=== PATIENT | female | born 1945 | race Caucasian/White ===

== ENCOUNTER → 2020-08-15 | Outpatient (CLI) | payer MEDICARE, MEDICAID ==
[2020-08-03 11:53] VITALS: BP 175/78
[~2020-08-15] MED LIST: ACET325T21 PO; ACET325T9 PO; AMLO-187 PO; ATOR40TA59 PO; BISA10SU55 RC; CALC500T31 PO; CARB100C4 PO; CARB200T13 PO; CLON-77 PO; CLONAZEPAM1 MG PO; CYCL10TA2 PO; FLUO40CA2 PO; FLUT16SP NS; GABA600T7 PO; HYDR453.4 TP; IBUP-1007 PO; INSU100I27 SQ; INSU100V6 SQ; LACT1TAB6 PO; LEVO125T5 PO; LEVO750T5 PO; LIDO76.5 TP; LOPE2TAB27 PO; LOSA100T14 PO; MELA1TAB44 PO; MENT118G TP; METF500T16 PO; METO5TAB PO; MIRA25TA PO; MULT-237 PO; NYST15PO9 TP; NYST1POW5 MC; OMEP20TA8 PO; ONDA-84 PO; POLY17PO29 PO; SENN8.6T11 PO; SODI44SP NS; TRAM50TA PO
--- NOTE | 2020-08-15 13:25 | KCIC ---
3 views the cervical spine compared to similar exam dated July 27, 2020 for C2 fracture follow-up status post fall on July 26. FINDINGS: Fracture is not well depicted today, however there is no malalignment between the body of C 2 and the odontoid. Prevertebral soft tissues are grossly unremarkable. Multilevel degenerative shanks es are seen throughout cervical spine. Bulky uncovertebral arthrosis is also evident. IMPRESSION: 1. Stable odontoid fracture with no malalignment. Electronically signed by: Gustavo Polk MD (08/15/2020 1:23 PM) [id number]
--- NOTE | 2020-08-15 16:15 | KCIC ---
CT HEAD/BRAIN WO History: Reason: Subdural hematoma follow up. No LOC on fall. / Spl. Instructions: / History: Comparison: August 02, 2020 Technique: Noncontrast CT imaging was performed of the head. Exposure: One or more of the following individualized dose reduction techniques were utilized for thi s examination: 1. Automated exposure control 2. Adjustment of the mA and/or kV according to patient size 3. Use of iterative reconstruction technique. Findings: Resolved previously seen right parafalcine and tentorial subdural hematoma. No acute intracranial hem orrhage. No mass effect. No hydrocephalus. Moderate foci of decreased attenuation within the hemispheric white matter, most often due to chronic microvascular ischemia, unchanged. Intracranial atheromatous calcifications. Imaged orbits are unremarkable. Imaged paranasal sinuses and mastoid air cells are clear. No acute ca lvarial fracture. Impression: 1. Resolved right parafalcine and tentorial subdural hematoma. Electronically signed by: Jovan Moncada DO (08/15/2020 4:13 PM) [facility]
== END ==
LOC: KCIC 10:39
PROVIDERS: ATTEND Neurological Surgery
DX: S12.110A Anterior displaced Type II dens fracture, initial encounter for closed fracture (principal); S12.100A Unspecified displaced fracture of second cervical vertebra, initial encounter for closed fracture; X58.XXXA Exposure to other specified factors, initial encounter; Y93.89 Activity, other specified; Y92.89 Other specified places as the place of occurrence of the external cause; Y99.8 Other external cause status
CPT/HCPCS: 70450; 72040

== ENCOUNTER 2020-09-05 10:07 | Inpatient (IN) | payer MEDICARE, MEDICAID ==
[~2020-09-05] VITALS: Ht 162.6 cm; Wt 82.9 kg
[~2020-09-05 10:07] MED LIST changes: -ACET325T9 PO; -BISA10SU55 RC; -CARB200T13 PO; -CLONAZEPAM1 MG PO; -FLUT16SP NS; -IBUP-1007 PO; -LEVO750T5 PO; -MENT118G TP; -METO5TAB PO; -NYST15PO9 TP; -NYST1POW5 MC; -POLY17PO29 PO; -SENN8.6T11 PO; -SODI44SP NS; -TRAM50TA PO
[2020-09-05 10:52] LABS: BASO % 0 % (0-3); EOS # 0.1 x10^3/uL (0.0-0.7); EOS % 0 % (0-3); HEMOGLOBIN 11.3 g/dL (12.0-15.5); LYMPH # 0.8 x10^3/uL (1.0-4.8); LYMPH % 6 % (24-48); MEAN CORPUSCULAR HEMOGLOBIN 31 pg (25-35); MEAN CORPUSCULAR HGB CONC 32 g/dL (31-37); MEAN CORPUSCULAR VOLUME 96 fL (79-100); MONO # 0.7 x10^3/uL (0.0-1.1); MONO % 5 % (0-9); NEUT # 11.8 x10^3/uL (1.8-7.7); NEUT % 88 % (31-73); PLATELET COUNT 502 x10^3/uL (140-400); RED BLOOD COUNT 3.63 x10^6/uL (3.50-5.40); RED CELL DISTRIBUTION WIDTH 14.7 % (11.5-14.5); WHITE BLOOD COUNT 13.4 x10^3/uL (4.0-11.0)
[2020-09-05 11:33] LABS: CALCIUM 9.4 mg/dL (8.5-10.1); CREATININE 1.5 mg/dL (0.6-1.0)
[2020-09-05 11:38] LABS: ALBUMIN/GLOBULIN RATIO 0.7 (1.0-1.7); MAGNESIUM 2.2 mg/dL (1.8-2.4); TOTAL BILIRUBIN 0.2 mg/dL (0.2-1.0); TOTAL PROTEIN 7.3 g/dL (6.4-8.2)
--- NOTE | 2020-09-05 11:46 | RAD ---
EXAM: CT HEAD WITHOUT IV CONTRAST CLINICAL HISTORY: Altered mental status COMPARISON: 08/15/2020 TECHNIQUE: Routine CT of the head without contrast. Soft tissues and bone windows were reviewed. PQRS compliance statement - One or more of the following individualized dose reduction techniques wer e utilized for this study: 1. Automated exposure control 2. Adjustment of the mA and/or kV according to patient size 3. Use of iterative reconstruction technique FINDINGS: There is no evidence of hemorrhage, mass or extra-axial fluid collection. Elena-white differentiation is maintained with no evidence of edema. Subcortical, periventricular as w ell as deep white matter foci of hypoattenuation likely changes of chronic small vessel disease. There is no mass effect or shift of the intracranial structures. The ventricles, basilar cisterns and cortical sulci are normal in size and configuration for the lloyd ents stated age. The cerebellum and brainstem are unremarkable. The calvarium demonstrates no evidence of fracture or focal lesion. There is normal aeration of the visualized paranasal sinuses and mastoid air cells. The visualized portions of the orbits are normal. IMPRESSION: No evidence for acute intracranial process. White matter changes likely chronic small vessel disease. EXAM: CT CERVICAL SPINE WITHOUT IV CONTRAST CLINICAL HISTORY: Reason: fall AMs / Spl. Instructions: / History: COMPARISON: 07/26/2020. TECHNIQUE: Helical CT of the cervical spine was performed. Axial, coronal and sagittal reformatted im ages were also performed. PQRS compliance statement - One or more of the following individualized dose reduction techniques wer e utilized for this study: 1. Automated exposure control 2. Adjustment of the mA and/or kV according to patient size 3. Use of iterative reconstruction technique FINDINGS: There is a transverse fracture through the base of the dens with less than 2 mm distraction of the pr incipal fragments, without involvement of the lateral masses. When compared to prior CT 07/26/2080 fr acture components are mildly further distracted suggesting interval motion. The arch of C1 is preserv ed. Vertebral body heights are preserved. Mild C4-5, C5-6 and moderate C6-7 disc height loss with end plate osteophytes. Facet degenerative changes are seen bilaterally. No spondylolisthesis. Right upper lung groundglass opacities possibly atelectasis or developing consolidation. IMPRESSION: 1. Base of the dens fracture is again seen, however separation of the principal fragments is margina lly increased compared to 07/26/2020 although remains less than 2 mm. 2. Right upper lung parenchymal opacities likely consolidative process as pneumonia. Findings discussed with Adriana Farmer at 09/05/2020 11:43 AM. FOR INTERNAL CODING PURPOSES RESULT CODE: (C) Electronically signed by: Jose Sanders MD (09/05/2020 11:44 AM) [id number]
[2020-09-05 11:56] LABS: % BANDS 12 % (0-9); % LYMPHS 15 % (24-48); % MONOS 4 % (0-10); % SEGS 69 % (35-66); PLT ESTIMATE INCREASED (ADEQUATE)
--- NOTE | 2020-09-05 12:44 | PHYS DOC ---
Past Medical History Past Medical History: Anxiety, Dementia, Depression, Diabetes-Type II, High Cholesterol, Hypertension, Hypothyroid, Other Additional Past Medical Histor: Post polio syndome,CERVICAL FX,SUBDURAL HEMORRHAGE Past Surgical History: Appendectomy, Cholecystectomy, Hysterectomy, Knee Replacement Smoking Status: Never Smoker Alcohol Use: None General Adult EDM: Chief Complaint: ALTERED MENTAL STATUS HPI: HPI: Patient is a 75 year old female with a history of diabetes type 2, hype rtension, dementia, high cholesterol, anxiety, who presents today from [facility]. shelter staff report patient fell down 2 days ago and has been altered for the last 2 days. They states she normally has dementia but she is more altered than normal. Patient herself states she fell down 4 days ago and has a broken neck. She is in a c-collar. Review of Systems: Review of Systems: Constitutional: Denies fever or chills. [] Eyes: Denies change in visual acuity. [] HENT: Denies nasal congestion or sore throat. [] Respiratory: Denies cough or shortness of breath. [] Cardiovascular: Denies chest pain or edema. [] GI: Denies abdominal pain, nausea, vomiting, bloody stools or diarrhea. [] : Denies dysuria. [] Musculoskeletal: Reports fall. Denies back pain or joint pain. [] Integument: Denies rash. [] Neurologic: Reports AMS. Denies headache, focal weakness or sensory changes. [] Psychiatric: Denies depression or anxiety. [] Heart Score: Risk Factors: Risk Factors: DM, Current or recent (<one month) smoker, HTN, HLP, family history of CAD, obesity. Risk Scores: Score 0 - 3: 2.5% MACE over next 6 weeks - Discharge Home Score 4 - 6: 20.3% MACE over next 6 weeks - Admit for Clinical Observation Score 7 - 10: 72.7% MACE over next 6 weeks - Early Invasive Strategies Allergies: Allergies: Allergies Coded Allergies Type Severity Reaction Last Updated Verified No Known Drug Allergies 07/26/20 No Physical Exam: PE: Constitutional: Well developed, well nourished, no acute distress, non-toxic appearance. [] HENT: Normocephalic, atraumatic, bilateral external ears normal, oropharynx moist, no oral exudates, nose normal. [] Eyes: PERRLA, EOMI, conjunctiva normal, no discharge. [] Neck: Patient is in a c-collar, mild midline tenderness to the proximal cervical spine, supple, no stridor. Limited range of motion to the cervical spine due to pain. Cardiovascular:Heart rate regular rhythm, no murmur [] Lungs & Thorax: Bilateral breath sounds clear to auscultation [] Abdomen: Bowel sounds normal, soft, no tenderness, no masses, no pulsatile masses. [] Skin: Warm, dry, no erythema, no rash. [] Back: No tenderness, no CVA tenderness. [] Extremities: No tenderness, no cyanosis, no clubbing, ROM intact, no edema. [] Neurologic: Alert and oriented X 3, normal motor function, normal sensory f unction, no focal deficits noted. [] Psychologic: Flat affect Current Patient Data: Labs: Laboratory Tests Test 09/05/20 10:23 White Blood Count 13.4 x10^3/uL (4.0-11.0) H Red Blood Count 3.63 x10^6/uL (3.50-5.40) Hemoglobin 11.3 g/dL (12.0-15.5) L Hematocrit 35.0 % (36.0-47.0) L Mean Corpuscular Volume 96 fL (79-100) Mean Corpuscular Hemoglobin 31 pg (25-35) Mean Corpuscular Hemoglobin Concent 32 g/dL (31-37) Red Cell Distribution Width 14.7 % (11.5-14.5) H Platelet Count 502 x10^3/uL (140-400) H Neutrophils (%) (Auto) 88 % (31-73) H Lymphocytes (%) (Auto) 6 % (24-48) L Monocytes (%) (Auto) 5 % (0-9) Eosinophils (%) (Auto) 0 % (0-3) Basophils (%) (Auto) 0 % (0-3) Neutrophils # (Auto) 11.8 x10^3/uL (1.8-7.7) H Lymphocytes # (Auto) 0.8 x10^3/uL (1.0-4.8) L Monocytes # (Auto) 0.7 x10^3/uL (0.0-1.1) Eosinophils # (Auto) 0.1 x10^3/uL (0.0-0.7) Basophils # (Auto) 0.0 x10^3/uL (0.0-0.2) Segmented Neutrophils % 69 % (35-66) H Band Neutrophils % 12 % (0-9) H Lymphocytes % 15 % (24-48) L Monocytes % 4 % (0-10) Platelet Estimate Increased (ADEQUATE) Sodium Level 138 mmol/L (136-145) Potassium Level 4.0 mmol/L (3.5-5.1) Chloride Level 100 mmol/L (98-107) Carbon Dioxide Level 26 mmol/L (21-32) Anion Gap 12 (6-14) Blood Urea Nitrogen 37 mg/dL (7-20) H Creatinine 1.5 mg/dL (0.6-1.0) H Estimated GFR (Cockcroft-Gault) 34.0 BUN/Creatinine Ratio 25 (6-20) H Glucose Level 167 mg/dL (70-99) H Calcium Level 9.4 mg/dL (8.5-10.1) Magnesium Level 2.2 mg/dL (1.8-2.4) Total Bilirubin 0.2 mg/dL (0.2-1.0) Aspartate Amino Transferase (AST) 17 U/L (15-37) Alanine Aminotransferase (ALT) 25 U/L (14-59) Alkaline Phosphatase 142 U/L (46-116) H Troponin I Quantitative < 0.017 ng/mL (0.000-0.055) BR-Prj-T-Type Natriuretic Peptide 117 pg/mL (0-124) Total Protein 7.3 g/dL (6.4-8.2) Albumin 3.0 g/dL (3.4-5.0) L Albumin/Globulin Ratio 0.7 (1.0-1.7) L Lipase 82 U/L (73-393) Laboratory Tests 09/05/20 10:23 Laboratory Tests 09/05/20 10:23 Vital Signs: Vital Signs Date Time Temp Pulse Resp B/P (MAP) Pulse Ox O2 Delivery O2 Flow Rate FiO2 09/05/20 10:07 98.6 95 20 122/66 (84) 91 Room Air 98.6 EKG: EK interpreted by Dr. Leone sinus rhythm HR 91 no STEMI[] Radiology/Procedures: Radiology/Procedures: []PROCEDURE: CT HEAD AND CERVICAL SPINE WO EXAM: CT HEAD WITHOUT IV CONTRAST CLINICAL HISTORY: Altered mental status COMPARISON: 08/15/2020 TECHNIQUE: Routine CT of the head without contrast. Soft tissues and bone windows were revi ewed. PQRS compliance statement - One or more of the following individualized dose reduction techniques were utilized for this study: 1. Automated exposure control 2. Adjustment of the mA and/or kV according to patient size 3. Use of iterative reconstruction technique FINDINGS: There is no evidence of hemorrhage, mass or extra-axial fluid collection. Elena-white differentiation is maintained with no evidence of edema. Subcortical, periventricular as well as deep white matter foci of hypoattenuation likely changes of chronic small vessel disease. There is no mass effect or shift of the intracranial structures. The ventricles, basilar cisterns and cortical sulci are normal in size and configuration for the patients stated age. The cerebellum and brainstem are unremarkable. The calvarium demonstrates no evidence of fracture or focal lesion. There is normal aeration of the visualized paranasal sinuses and mastoid air cells. The visualized portions of the orbits are normal. IMPRESSION: No evidence for acute intracranial process. White matter changes likely chronic small vessel disease. EXAM: CT CERVICAL SPINE WITHOUT IV CONTRAST CLINICAL HISTORY: Reason: fall AMs / Spl. Instructions: / History: COMPARISON: 07/26/2020. TECHNIQUE: Helical CT of the cervical spine was performed. Axial, coronal and sagittal reformatted images were also performed. PQRS compliance statement - One or more of the following individualized dose red uction techniques were utilized for this study: 1. Automated exposure control 2. Adjustment of the mA and/or kV according to patient size 3. Use of iterative reconstruction technique FINDINGS: There is a transverse fracture through the base of the dens with less than 2 mm distraction of the principal fragments, without involvement of the lateral masses. When compared to prior CT 07/26/2080 fracture components are mildly further distracted suggesting interval motion. The arch of C1 is preserved. Vertebral body heights are preserved. Mild C4-5, C5-6 and moderate C6-7 disc height loss with endplate osteophytes. Facet degenerative changes are seen bilaterally. No spondylolisthesis. Right upper lung groundglass opacities possibly atelectasis or developing consolidation. IMPRESSION: 1. Base of the dens fracture is again seen, however separation of the principal fragments is marginally increased compared to 07/26/2020 although remains less than 2 mm. 2. Right upper lung parenchymal opacities likely consolidative process as pneumonia. Findings discussed with Carl Jane at 09/05/2020 11:43 AM. FOR INTERNAL CODING PURPOSES RESULT CODE: (C) Electronically signed by: Jose Diaz MD (09/05/2020 11:44 AM) [id number] DICTATED and SIGNED BY: JOSE DIAZ MD DATE: 09/05/20 [id number] 0 Course & Med Decision Making: Course & Med Decision Making Pertinent Labs and Imaging studies reviewed. (See chart for details) This is a 75-year-old female patient presented to the ED today to be evaluated after falling 2 days ago and developing altered mental status post fall 2 days ago. Patient is currently alert oriented x3 though she removed her IV in the ED for no good reason. CT of the head is negative, CT of the cervical spine was noted for base of the dens fracture is again seen, however separation of the principal fragments is marginally increased compared to 07/26/2020 although remains less than 2 mm. Right upper lung parenchymal opacities likely consolidative process as pneumonia. CBC with a WBC of 13.4, CMP with creatinine of 1.5, BUN of 37. Spoke with Magui from neurosurgery, she states they are aware of patient's dense fracture from July 26 as well as today. We will follow up with patient as an outpatient Spoke with Dr. Callahan who accepted patient for admission Charles Disclaimer: Charles Disclaimer: This electronic medical record was generated, in whole or in part, using a voice recognition dictation system. Departure Departure Impression: Primary Impression: Altered mental status Qualified Codes: R41.82 - Altered mental status, unspecified Additional Impressions: Fall Qualified Codes: W19.XXXA - Unspecified fall, initial encounter Closed dens fracture Qualified Codes: S12.100A - Unspecified displaced fracture of second cervical vertebra, initial encounter for closed fracture Disposition: 09 ADMITTED INPT THIS HOSP Condition: STABLE Referrals: BRIAN PA (PCP) CARL JANE [employer] Sep 05, 2020 12:44
--- NOTE | 2020-09-05 12:51 | NUR ---
At 1247, DAMASO Kidd and I took her off a bedpan and wiped her behind clean. New Brief was also put on.
[2020-09-05] MEDS ORDERED: ACETAMINOPHEN 325 MG TABLET. PO PRN ×2 (13:30→13:45)
[2020-09-05] MEDS ORDERED: MORPHINE SULFATE 2 MG/ML VIAL. IV PRN ×2 (13:30→13:45)
[2020-09-05] MEDS ORDERED: ONDANSETRON PF 4 MG/2 ML VIAL. IV PRN (13:30)
[2020-09-05] MEDS ORDERED: IV NORMAL SALINE 1000ML BAG 1,000 ML IV ONE (13:30)
--- NOTE | 2020-09-05 13:41 | PDOC1 ---
History and Physical Date of Admission Date of Admission DATE: 09/05/20 TIME: 13:26 Identification/Chief Complaint Chief Complaint Fall Source Source: Chart review, Patient History of Present Illness History of Present Illness Patient is a 75-year-old female with recent past medical history subdural hematoma, who presents from her [facility] for evaluation of a fall 2 days ago. She was evaluated at her [facility] 2 days ago and placed in a c-collar, but was sent to the ER for evaluation after her altered mental status appeared to not be improving. She reportedly has a history of dementia and is normally altered at baseline. CT head obtained upon admission showing no evidence for acute intracranial process, but does again note base of the dens fracture status marginally increased compared to 07/2020, but remains <2 mm. She does report some dysuria over the past 3 days. Upon evaluation ER, she does appear dehydrated with acute kidney injury. Will admit patient for further medical management. Past Medical History Cardiovascular: HTN CENTRAL NERVOUS SYSTEM: Dementia, Other Endocrine: Diabetes, Hypothyroidism Past Surgical History Past Surgical History: Appendectomy, Cholecystectomy, Total knee replacement, Hysterectomy Family History Family History: Alzheimer's Disease Social History Smoke: No ALCOHOL: none Drugs: None Current Problem List Problem List Problems Medical Problems: (1) Altered mental status Status: Acute (2) Closed dens fracture Status: Acute (3) Fall Status: Acute Current Medications Current Medications Active Scripts Active Cyclobenzaprine Hcl 10 Mg Tablet 5 Mg PO PRN Q8HRS PRN 30 Days Reported Aspercreme (Lidocaine HCl) 76.5 Gm Cream..g. 1 Philip TP TID 30 Days Ondansetron Hcl 4 Mg Tablet 1 Tab PO PRN Q8HRS PRN Loperamide (Loperamide Hcl) 2 Mg Tablet 2 Mg PO PRN PRN After each loose stool not to exceed 8c/d Acetaminophen 325 Mg Tablet 2 Tab PO PRN Q4HRS PRN 30 Days Levemir Flextouch (Insulin Detemir) 100 Unit/1 Ml Insuln.pen 32 Unit SQ HS Humalog (Insulin Lispro) 100 Unit/1 Ml Vial 14 Unit SQ TIDWMEALS Omeprazole 20 Mg Tablet.dr 1 Tab PO DAILY Myrbetriq (Mirabegron) 25 Mg Tab.er.24h 25 Mg PO DAILY Metformin Hcl 500 Mg Tablet 500 Mg PO DAILY Melatonin 1 Mg Tablet 1 Tab PO QHS 30 Days Losartan Potassium 100 Mg Tablet 100 Mg PO DAILY Levothyroxine Sodium 125 Mcg Tablet 1 Tab PO DAILY Gabapentin 600 Mg Tablet 600 Mg PO TID Fluoxetine Hcl 40 Mg Capsule 40 Mg PO DAILY Daily Vitamin Formula-Minerals (Multivitamin With Minerals) 1 Each Tablet 1 Tab PO DAILY 30 Days Clonazepam (Clonazepam) 0.5 Mg Tablet 0.5 Mg PO HS Carbamazepine 100 Mg Cpmp.12hr 2 Cap PO BID 30 Days Calcium Carbonate 500 Mg Tablet 1 Tab PO BID PRN 30 Days Atorvastatin Calcium 40 Mg Tablet 1 Tab PO DAILY Amlodipine Besylate 10 Mg Tablet 10 Mg PO DAILY Acidophilus (Lactobacillus Acidophilus) 1 Each Tablet 1 Tab PO TID 30 Days Allergies Allergies: Coded Allergies: No Known Drug Allergies (Unverified , 07/26/20) ROS Review of System GENERAL: No history of weight change, weakness or fevers. SKIN: No bruising, hair changes or rashes. EYES: No blurred, double or loss of vision. NOSE AND THROAT: No history of nosebleeds, hoarseness or sore throat. HEART: Denies chest pain, denies palpitations. LUNGS: Denies cough, hemoptysis, wheezing or shortness of breath. GASTROINTESTINAL: Denies nausea, vomiting, abdominal pain. GENITOURINARY: Dysuria. Denies frequency, urgency, hematuria. NEUROLOGIC: Denies history of numbness, tingling, tremor or weakness. PSYCHIATRIC: Denies anxiety, denies depression. ENDOCRINE: No history of heat or cold intolerance, polyuria or polydipsia. EXTREMITIES: Denies muscle weakness, joint pain, pain on walking or stiffness. Physical Exam Physical Exam General: Alert, Cooperative, No acute distress. C-collar in place. HEENT: PERRLA, EOMI Lungs: Decreased breath sounds, Normal air movement Heart: RRR, no murmurs Cardiovascular: S1, S2 Abdomen: Normal bowel sounds, Soft, No tenderness Extremities: No clubbing, No cyanosis Skin: No rashes, No significant lesion Neuro: Normal speech, Normal tone, Sensation intact Psych/Mental Status: Mental status NL, Mood NL Vitals Vitals Vital Signs Date Time Temp Pulse Resp B/P (MAP) Pulse Ox O2 Delivery O2 Flow Rate FiO2 09/05/20 10:07 98.6 95 20 122/66 (84) 91 Room Air 98.6 Labs Labs Laboratory Tests Test 09/05/20 10:23 White Blood Count 13.4 x10^3/uL (4.0-11.0) Red Blood Count 3.63 x10^6/uL (3.50-5.40) Hemoglobin 11.3 g/dL (12.0-15.5) Hematocrit 35.0 % (36.0-47.0) Mean Corpuscular Volume 96 fL (79-100) Mean Corpuscular Hemoglobin 31 pg (25-35) Mean Corpuscular Hemoglobin Concent 32 g/dL (31-37) Red Cell Distribution Width 14.7 % (11.5-14.5) Platelet Count 502 x10^3/uL (140-400) Neutrophils (%) (Auto) 88 % (31-73) Lymphocytes (%) (Auto) 6 % (24-48) Monocytes (%) (Auto) 5 % (0-9) Eosinophils (%) (Auto) 0 % (0-3) Basophils (%) (Auto) 0 % (0-3) Neutrophils # (Auto) 11.8 x10^3/uL (1.8-7.7) Lymphocytes # (Auto) 0.8 x10^3/uL (1.0-4.8) Monocytes # (Auto) 0.7 x10^3/uL (0.0-1.1) Eosinophils # (Auto) 0.1 x10^3/uL (0.0-0.7) Basophils # (Auto) 0.0 x10^3/uL (0.0-0.2) Segmented Neutrophils % 69 % (35-66) Band Neutrophils % 12 % (0-9) Lymphocytes % 15 % (24-48) Monocytes % 4 % (0-10) Platelet Estimate Increased (ADEQUATE) Sodium Level 138 mmol/L (136-145) Potassium Level 4.0 mmol/L (3.5-5.1) Chloride Level 100 mmol/L (98-107) Carbon Dioxide Level 26 mmol/L (21-32) Anion Gap 12 (6-14) Blood Urea Nitrogen 37 mg/dL (7-20) Creatinine 1.5 mg/dL (0.6-1.0) Estimated GFR (Cockcroft-Gault) 34.0 BUN/Creatinine Ratio 25 (6-20) Glucose Level 167 mg/dL (70-99) Calcium Level 9.4 mg/dL (8.5-10.1) Magnesium Level 2.2 mg/dL (1.8-2.4) Total Bilirubin 0.2 mg/dL (0.2-1.0) Aspartate Amino Transf (AST/SGOT) 17 U/L (15-37) Alanine Aminotransferase (ALT/SGPT) 25 U/L (14-59) Alkaline Phosphatase 142 U/L (46-116) Troponin I Quantitative < 0.017 ng/mL (0.000-0.055) ZE-Sdv-Q-Type Natriuretic Peptide 117 pg/mL (0-124) Total Protein 7.3 g/dL (6.4-8.2) Albumin 3.0 g/dL (3.4-5.0) Albumin/Globulin Ratio 0.7 (1.0-1.7) Lipase 82 U/L (73-393) Laboratory Tests Test 09/05/20 10:23 White Blood Count 13.4 x10^3/uL (4.0-11.0) Red Blood Count 3.63 x10^6/uL (3.50-5.40) Hemoglobin 11.3 g/dL (12.0-15.5) Hematocrit 35.0 % (36.0-47.0) Mean Corpuscular Volume 96 fL (79-100) Mean Corpuscular Hemoglobin 31 pg (25-35) Mean Corpuscular Hemoglobin Concent 32 g/dL (31-37) Red Cell Distribution Width 14.7 % (11.5-14.5) Platelet Count 502 x10^3/uL (140-400) Neutrophils (%) (Auto) 88 % (31-73) Lymphocytes (%) (Auto) 6 % (24-48) Monocytes (%) (Auto) 5 % (0-9) Eosinophils (%) (Auto) 0 % (0-3) Basophils (%) (Auto) 0 % (0-3) Neutrophils # (Auto) 11.8 x10^3/uL (1.8-7.7) Lymphocytes # (Auto) 0.8 x10^3/uL (1.0-4.8) Monocytes # (Auto) 0.7 x10^3/uL (0.0-1.1) Eosinophils # (Auto) 0.1 x10^3/uL (0.0-0.7) Basophils # (Auto) 0.0 x10^3/uL (0.0-0.2) Segmented Neutrophils % 69 % (35-66) Band Neutrophils % 12 % (0-9) Lymphocytes % 15 % (24-48) Monocytes % 4 % (0-10) Platelet Estimate Increased (ADEQUATE) Sodium Level 138 mmol/L (136-145) Potassium Level 4.0 mmol/L (3.5-5.1) Chloride Level 100 mmol/L (98-107) Carbon Dioxide Level 26 mmol/L (21-32) Anion Gap 12 (6-14) Blood Urea Nitrogen 37 mg/dL (7-20) Creatinine 1.5 mg/dL (0.6-1.0) Estimated GFR (Cockcroft-Gault) 34.0 BUN/Creatinine Ratio 25 (6-20) Glucose Level 167 mg/dL (70-99) Calcium Level 9.4 mg/dL (8.5-10.1) Magnesium Level 2.2 mg/dL (1.8-2.4) Total Bilirubin 0.2 mg/dL (0.2-1.0) Aspartate Amino Transf (AST/SGOT) 17 U/L (15-37) Alanine Aminotransferase (ALT/SGPT) 25 U/L (14-59) Alkaline Phosphatase 142 U/L (46-116) Troponin I Quantitative < 0.017 ng/mL (0.000-0.055) WD-Tih-X-Type Natriuretic Peptide 117 pg/mL (0-124) Total Protein 7.3 g/dL (6.4-8.2) Albumin 3.0 g/dL (3.4-5.0) Albumin/Globulin Ratio 0.7 (1.0-1.7) Lipase 82 U/L (73-393) Images Images EXAM: CT HEAD WITHOUT IV CONTRAST CLINICAL HISTORY: Altered mental status COMPARISON: 08/15/2020 TECHNIQUE: Routine CT of the head without contrast. Soft tissues and bone windows were reviewed. PQRS compliance statement - One or more of the following individualized dose reduction techniques were utilized for this study: 1. Automated exposure control 2. Adjustment of the mA and/or kV according to patient size 3. Use of iterative reconstruction technique FINDINGS: There is no evidence of hemorrhage, mass or extra-axial fluid collection. Elena-white differentiation is maintained with no evidence of edema. Subcortical, periventricular as well as deep white matter foci of hypoattenuation likely changes of chronic small vessel disease. There is no mass effect or shift of the intracranial structures. The ventricles, basilar cisterns and cortical sulci are normal in size and configuration for the patients stated age. The cerebellum and brainstem are unremarkable. The calvarium demonstrates no evidence of fracture or focal lesion. There is normal aeration of the visualized paranasal sinuses and mastoid air cells. The visualized portions of the orbits are normal. IMPRESSION: No evidence for acute intracranial process. White matter changes likely chronic small vessel disease. EXAM: CT CERVICAL SPINE WITHOUT IV CONTRAST CLINICAL HISTORY: Reason: fall AMs / Spl. Instructions: / History: COMPARISON: 07/26/2020. TECHNIQUE: Helical CT of the cervical spine was performed. Axial, coronal and sagittal reformatted images were also performed. PQRS compliance statement - One or more of the following individualized dose reduction techniques were utilized for this study: 1. Automated exposure control 2. Adjustment of the mA and/or kV according to patient size 3. Use of iterative reconstruction technique FINDINGS: There is a transverse fracture through the base of the dens with less than 2 mm distraction of the principal fragments, without involvement of the lateral masses. When compared to prior CT 07/26/2080 fracture components are mildly further distracted suggesting interval motion. The arch of C1 is preserved. Vertebral body heights are preserved. Mild C4-5, C5-6 and moderate C6-7 disc height loss with endplate osteophytes. Facet degenerative changes are seen bilaterally. No spondylolisthesis. Right upper lung groundglass opacities possibly atelectasis or developing consolidation. IMPRESSION: 1. Base of the dens fracture is again seen, however separation of the principal fragments is marginally increased compared to 07/26/2020 although remains less than 2 mm. 2. Right upper lung parenchymal opacities likely consolidative process as pneumonia. VTE Prophylaxis Ordered VTE Prophylaxis Devices: Yes VTE Pharmacological Prophylaxi: No Assessment/Plan Assessment/Plan Fall HCAP SHAHAB Vasomotor nephropathy Malnutrition Plan: Etiology of fall likely orthostatic or vasovagal CT head from previous admission in 07/2020 showed small amount of subdural hemorrhage along the superior and inferior falx and type II odontoid fracture with possible linear extension to the C2 body. Repeat CT head obtained on admis ирина with base of the dens fracture is again seen, however marginally increased separation of the principal fragments compared to 07/26/2020 although remains less than 2 mm. Right upper lung parenchymal opacities captured on CT likely consolidative process as pneumonia Chest x-ray pending, UA pending Cefepime 2 g every 8 hours, IV fluids Chest x-ray, urinalysis pending. FEN - Cardiac diet PPX - SCDs DNR Dispo - inpatient for above Justifications for Admission Other Justification JUAN ANTONIO CASSIDY MD Sep 05, 2020 13:41
[2020-09-05] MEDS ORDERED: BISACODYL 10 MG SUPP.RECT. PR PRN (13:45)
[2020-09-05] MEDS ORDERED: MAG HYDROX/ALUMINUM HYD/SIMETH 30 ML ORAL.SUSP PO PRN (13:45)
[2020-09-05] MEDS ORDERED: ONDANSETRON PF 4 MG/2 ML VIAL. IVP PRN (13:45)
[2020-09-05] MEDS ORDERED: MAGNESIUM HYDROXIDE 2,400 MG/30 ML ORAL.SUSP. PO PRN (13:45)
[2020-09-05] MEDS ORDERED: CEFEPIME HCL IV Push 2 GM VIAL. IVP ONE (14:00)
[2020-09-05 14:38] LABS: BARBITURATES NEG (NEG); BENZODIAZEPINES NEG (NEG); CANNABINOIDS NEG (NEG); COCAINE NEG (NEG); METHADONE NEG (NEG); OPIATES NEG (NEG); PHENCYCLIDINE NEG (NEG)
[2020-09-05 14:55] LABS: AMPHETAMINE/METHAMPHETAMINE NEG (NEG)
[2020-09-05 14:57] LABS: BILIRUBIN,URINE SMALL (NEG); CLARITY,URINE CLEAR; COLOR,URINE YELLOW; NITRITE,URINE NEGATIVE (NEG); PROTEIN,URINE NEGATIVE (NEG-TRACE); UROBILINOGEN,URINE 0.2 mg/dL (0.2 mg/dL)
--- NOTE | 2020-09-05 14:57 | EKG ---
[facility] [address] [place] [address] Test Date: 2020-09-05 Test Time: 10:20:07 Pat Name: DEEP MOSES Department: Room: Gender: F Auto Appraiser: : 1945 Requested By: CARL JANE Order Number: [id number] Reading MD: Measurements Intervals [place] Rate: 91 P: 46 CA: 206 QRS: -39 QRSD: 90 T: 38 QT: 350 QTc: 432 Interpretive Statements SINUS RHYTHM ABNORMAL LEFT AXIS DEVIATION R-S TRANSITION ZONE IN V LEADS DISPLACED TO THE LEFT LEFT ANTERIOR FASCICULAR BLOCK ABNORMAL ECG RI6.02 No previous ECG available for comparison
[2020-09-05 15:04] LABS: BACTERIA,URINE FEW /HPF (0-FEW)
[2020-09-05 18:30] VITALS: BP 146/69
[2020-09-05 19:00] VITALS: BP 155/68
[2020-09-05] MEDS ORDERED: IBUPROFEN 200 MG TABLET. PO PRN (20:00)
--- NOTE | 2020-09-05 20:00 | NUR ---
Patient arrived on 4N per cart from ER at 1800. Patient admitted at 1999. Patient is alert and oriented x4. Admitting diagnosis: AMS, Dens fracture from fall on 08/26/20. Pait
--- NOTE | 2020-09-05 20:01 | NUR ---
Patient has NKA. Patient has a cervical collar on. [facility] states that patient's mental status has been more altered than normal since her fall on 08/26/20. Patient stated that she has been on bedrest since fall. Patient stated prior to fall, she was walking with walker. Patient has O2 on at 3L/min per nasal cannula. Patient is in no acute distress at this time. Patient denies pain. Patient is incontinent of bowel and bladder. Will continue to monitor.
[2020-09-05] MEDS ORDERED: INSU100V6 SQ (20:13)
[2020-09-05] MEDS ORDERED: IBUP-1007 PO (20:21)
[2020-09-05] MEDS ORDERED: NYST1POW5 MC (20:21)
[2020-09-05] MEDS ORDERED: POLY17PO29 PO (20:21)
[2020-09-05] MEDS: CEFEPIME HCL IV Push 2 GM VIAL. IVP SCH (21:23)
[2020-09-05 23:15] VITALS: BP 108/54
[2020-09-06 03:00] VITALS: BP 120/59
--- NOTE | 2020-09-06 06:40 | PDOC ---
[employer] PROGRESS NOTE Date of Service DOS: DATE: 09/06/20 TIME: 06:34 Chief Complaint Chief Complaint Fall HCAP SHAHAB Present nephropathy Malnutrition Plan: Etiology of fall likely orthostatic or vasovagal CT head from previous admission in 07/2020 showed small amount of subdural hemorrhage along the superior and inferior falx and type II odontoid fracture with possible linear extension to the C2 body. Repeat CT head obtained on admission with base of the dens fracture is again seen, however marginally increased separation of the principal fragments compared to 07/26/2020 although remains less than 2 mm. Right upper lung parenchymal opacities captured on CT likely consolidative process as pneumonia Chest x-ray pending, UA pending Cefepime 2 g every 8 hours, IV fluids Chest x-ray, urinalysis pending. FEN - Cardiac diet PPX - SCDs DNR Dispo - inpatient for above History of Present Illness History of Present Illness Patient is a 75-year-old female with recent past medical history subdural hematoma, who [facility] her [facility] for evaluation of a fall 2 days ago. She was evaluated at her [facility] 2 days ago and placed in a c-collar, but was sent to the ER for evaluation after her altered mental status appeared to not be improving. She reportedly has a history of dementia and is normally altered at baseline. CT head obtained upon admission showing no evidence for acute intracranial process, but does again note base of the dens fracture status marginally increased compared to 07/2020, but remains <2 mm. She does report some dysuria over the past 3 days. Upon evaluation ER, she does appear dehydrated with acute kidney injury. Will admit patient for further medical management. 09/06: Patient seen and evaluated. She has history of IBS and reports some nausea, diarrhea, and abdominal pain last night. She states the symptoms are not new or unusual for her. She is afebrile. Intermittently using nasal cannula mostly at night, even though she denies sensation of shortness of breath. Appreciate neurosurgery recommendations. She may discharge back to her nursing facility today on oral antibiotics. Greater than 30 minutes spent managing discharge this patient. Vitals/I&O Vitals/I&O: Vital Signs Date Time Temp Pulse Resp B/P (MAP) Pulse Ox O2 Delivery O2 Flow Rate FiO2 09/06/20 03:00 98.3 78 18 120/59 (79) 97 Nasal Cannula 2.0 98.3 I & O 09/05/20 09/05/20 09/06/20 15:00 23:00 07:00 Intake Total 500 ml 700 ml Balance 500 ml 700 ml Physical Exam General: Alert, Cooperative, No acute distress Heart: Regular rate Lungs: Clear Abdomen: Soft, No tenderness Extremities: No clubbing, No cyanosis Skin: No rashes, No breakdown Labs Labs: Laboratory Tests Test 09/05/20 10:23 09/05/20 13:46 09/05/20 14:02 White Blood Count 13.4 x10^3/uL (4.0-11.0) Red Blood Count 3.63 x10^6/uL (3.50-5.40) Hemoglobin 11.3 g/dL (12.0-15.5) Hematocrit 35.0 % (36.0-47.0) Mean Corpuscular Volume 96 fL (79-100) Mean Corpuscular Hemoglobin 31 pg (25-35) Mean Corpuscular Hemoglobin Concent 32 g/dL (31-37) Red Cell Distribution Width 14.7 % (11.5-14.5) Platelet Count 502 x10^3/uL (140-400) Neutrophils (%) (Auto) 88 % (31-73) Lymphocytes (%) (Auto) 6 % (24-48) Monocytes (%) (Auto) 5 % (0-9) Eosinophils (%) (Auto) 0 % (0-3) Basophils (%) (Auto) 0 % (0-3) Neutrophils # (Auto) 11.8 x10^3/uL (1.8-7.7) Lymphocytes # (Auto) 0.8 x10^3/uL (1.0-4.8) Monocytes # (Auto) 0.7 x10^3/uL (0.0-1.1) Eosinophils # (Auto) 0.1 x10^3/uL (0.0-0.7) Basophils # (Auto) 0.0 x10^3/uL (0.0-0.2) Segmented Neutrophils % 69 % (35-66) Band Neutrophils % 12 % (0-9) Lymphocytes % 15 % (24-48) Monocytes % 4 % (0-10) Platelet Estimate Increased (ADEQUATE) Sodium Level 138 mmol/L (136-145) Potassium Level 4.0 mmol/L (3.5-5.1) Chloride Level 100 mmol/L (98-107) Carbon Dioxide Level 26 mmol/L (21-32) Anion Gap 12 (6-14) Blood Urea Nitrogen 37 mg/dL (7-20) Creatinine 1.5 mg/dL (0.6-1.0) Estimated GFR (Cockcroft-Gault) 34.0 BUN/Creatinine Ratio 25 (6-20) Glucose Level 167 mg/dL (70-99) Calcium Level 9.4 mg/dL (8.5-10.1) Magnesium Level 2.2 mg/dL (1.8-2.4) Total Bilirubin 0.2 mg/dL (0.2-1.0) Aspartate Amino Transf (AST/SGOT) 17 U/L (15-37) Alanine Aminotransferase (ALT/SGPT) 25 U/L (14-59) Alkaline Phosphatase 142 U/L (46-116) Creatine Kinase 34 U/L (26-192) Troponin I Quantitative < 0.017 ng/mL (0.000-0.055) < 0.017 ng/mL (0.000-0.055) DD-Iok-R-Type Natriuretic Peptide 117 pg/mL (0-124) Total Protein 7.3 g/dL (6.4-8.2) Albumin 3.0 g/dL (3.4-5.0) Albumin/Globulin Ratio 0.7 (1.0-1.7) Lipase 82 U/L (73-393) Urine Collection Type U cath Urine Color Yellow Urine Clarity Clear Urine pH 5.0 (<5.0-8.0) Urine Specific [place] >=1.030 (1.000-1.030) Urine Protein Negative mg/dL (NEG-TRACE) Urine Glucose (UA) >=1000 mg/dL (NEG) Urine Ketones (Stick) 15 mg/dL (NEG) Urine Blood Moderate (NEG) Urine Nitrite Negative (NEG) Urine Bilirubin Small (NEG) Urine Urobilinogen Dipstick 0.2 mg/dL (0.2 mg/dL) Urine Leukocyte Esterase Negative (NEG) Urine RBC 11-20 /HPF (0-2) Urine WBC 1-4 /HPF (0-4) Urine Squamous Epithelial Cells Few /LPF Urine Bacteria Few /HPF (0-FEW) Urine Opiates Screen Neg (NEG) Urine Methadone Screen Neg (NEG) Urine Barbiturates Neg (NEG) Urine Phencyclidine Screen Neg (NEG) Urine Amphetamine/Methamphetamine Neg (NEG) Urine Benzodiazepines Screen Neg (NEG) Urine Cocaine Screen Neg (NEG) Urine Cannabinoids Screen Neg (NEG) Urine Ethyl Alcohol Neg (NEG) Assessment and Plan Assessmemt and Plan Problems Medical Problems: (1) Altered mental status Status: Acute (2) Closed dens fracture Status: Acute (3) Fall Status: Acute Comment Review of Relevant I have reviewed the following items bernardo (where applicable) has been applied. Medications: Current Medications Medications (Trade) Dose Ordered Sig/Thu Route PRN Reason Start Time Stop Time Status Last Admin Dose Admin Sodium Chloride 1,000 ml @ 100 mls/hr 1X ONCE IV 09/05/20 13:30 09/05/20 23:29 DC 09/05/20 13:41 Cefepime HCl (Maxipime) 2 gm Q12HR IVP 09/05/20 21:00 09/05/20 21:23 Cefepime HCl (Maxipime) 2 gm 1X ONCE IVP 09/05/20 14:00 09/05/20 14:01 DC 09/05/20 14:08 Justifications for Admission Other Justification SHAHAB, HCAP, fall JUAN ANTONIO CASSIDY MD Sep 06, 2020 06:40
[2020-09-06 07:00] VITALS: BP 172/78
[2020-09-06 08:40] LABS: BASO % 0 % (0-3); EOS # 0.2 x10^3/uL (0.0-0.7); EOS % 2 % (0-3); LYMPH # 0.9 x10^3/uL (1.0-4.8); LYMPH % 9 % (24-48); MEAN CORPUSCULAR HEMOGLOBIN 32 pg (25-35); MEAN CORPUSCULAR HGB CONC 32 g/dL (31-37); MEAN CORPUSCULAR VOLUME 97 fL (79-100); MONO # 0.4 x10^3/uL (0.0-1.1); MONO % 4 % (0-9); NEUT % 84 % (31-73); PLATELET COUNT 428 x10^3/uL (140-400); RED BLOOD COUNT 3.49 x10^6/uL (3.50-5.40); RED CELL DISTRIBUTION WIDTH 14.7 % (11.5-14.5); WHITE BLOOD COUNT 9.5 x10^3/uL (4.0-11.0)
[2020-09-06 09:17] LABS: ALBUMIN 2.7 g/dL (3.4-5.0); ALBUMIN/GLOBULIN RATIO 0.6 (1.0-1.7); CALCIUM 8.8 mg/dL (8.5-10.1); CREATININE 0.8 mg/dL (0.6-1.0); GFR 70.3; POTASSIUM 3.7 mmol/L (3.5-5.1); TOTAL BILIRUBIN 0.3 mg/dL (0.2-1.0); TOTAL PROTEIN 7.1 g/dL (6.4-8.2)
[2020-09-06] MEDS ORDERED: CYCLOBENZAPRINE 10 MG TABLET. PO PRN (09:30)
[2020-09-06] MEDS ORDERED: ACETAMINOPHEN 325 MG TABLET. PO PRN (09:30)
[2020-09-06] MEDS ORDERED: metFORMIN 500 MG TABLET PO SCH (10:00)
[2020-09-06] MEDS ORDERED: ONDANSETRON ODT 4 MG TAB.RAPDIS. PO PRN (10:00)
[2020-09-06] MEDS ORDERED: LOPERAMIDE 2 MG CAPSULE PO PRN (10:00)
[2020-09-06] MEDS ORDERED: ATORVASTATIN CALCIUM 40 MG TABLET. PO SCH (10:00)
[2020-09-06] MEDS ORDERED: IBUPROFEN 200 MG TABLET. PO PRN (10:00)
[2020-09-06] MEDS ORDERED: amLODIPine BESYLATE 10 MG TABLET PO SCH (10:00)
--- NOTE | 2020-09-06 10:04 | SNU/HH DC ---
DISCHARGE ORDERS DISCHARGE INFORMATION: DISCHARGE DATE: Sep 06, 2020 FINAL DIAGNOSIS Problems Medical Problems: (1) Altered mental status Status: Acute (2) Closed dens fracture Status: Acute (3) Fall Status: Acute CONDITION ON DISCHARGE: Stable CODE STATUS: Code Status: DNR/DNI LONGTERM: SNF STAY <30 DAYS: Yes POST DISCHARGE ORDERS: ACTIVITY ORDERS: Activity as tolerated WEIGHT BEARING STATUS: Full weight bearing, As tolerated DIET AFTER DISCHARGE: ADA OTHER ORDERS: Patient will need a repeat CT head CHECKS AFTER DISCHARGE: CHECKS AFTER DISCHARGE: Check blood press - daily, Check blood sugar, ac/hs, Check your Temp as needed FOLLOW-UP: LAB ORDERS FOR FOLLOW-UP: CBC, CMP TREATMENT/EQUIPMENT ORDERS: Physical Therapy For: Evalulation/Treatment Occupational Therapy For: Evaluation/Treatment Speech Language Pathology For: Swallow Cognition DISCHARGE MEDICATIONS: Home Meds Active Scripts Cyclobenzaprine Hcl (CYCLOBENZAPRINE HCL) 10 Mg Tablet, 5 MG PO PRN Q8HRS PRN for MUSCLE SPASMS for 30 Days, #60 TAB Prov:GINNY RING MD 08/02/20 Reported Medications Nystatin (NYSTATIN) 1 Each Powder.ea., 1 EACH MC BID for yeast, EACH 09/05/20 Polyethylene Glycol 3350 (MIRALAX) 17 Gm Powd.pack, 1 PACKET PO PRN BID PRN for CONSTIPATION for 2 Days, PACKET 0 Refills dissolve in water 09/05/20 Ibuprofen (IBUPROFEN) 600 Mg Tablet, 600 MG PO TID for inflammation, TAB 09/05/20 Insulin Lispro (HUMALOG) 100 Unit/1 Ml Vial, 8 UNIT SQ DAILYWSUP for diabetes, EACH 09/05/20 Lidocaine HCl (Aspercreme) 76.5 Gm Cream..g., 1 MARY CARMEN TP TID for itching for 30 Days, GM 0 Refills 07/26/20 Ondansetron Hcl (ONDANSETRON HCL) 4 Mg Tablet, 1 TAB PO PRN Q8HRS PRN for VOMITING, #10 TAB 1 Refill 07/26/20 Loperamide Hcl (LOPERAMIDE) 2 Mg Tablet, 2 MG PO PRN PRN for DIARRHEA, TAB After each loose stool not to exceed 8c/d 07/26/20 Acetaminophen (ACETAMINOPHEN) 325 Mg Tablet, 2 TAB PO PRN Q4HRS PRN for pain or fever for 30 Days, #30 TAB 0 Refills 07/26/20 Insulin Detemir (Levemir Flextouch) 100 Unit/1 Ml Insuln.pen, 21 UNIT SQ HS for dm, SYR 07/26/20 Insulin Lispro (HUMALOG) 100 Unit/1 Ml Vial, 16 UNIT SQ BIDACBL for dm, VIAL 07/26/20 Omeprazole (OMEPRAZOLE) 20 Mg Tablet.dr, 1 TAB PO DAILY for reflux, #90 TAB 1 Refill 07/26/20 Mirabegron (MYRBETRIQ) 25 Mg Tab.er.24h, 25 MG PO DAILY for oab, TAB.SR 07/26/20 Metformin Hcl (METFORMIN HCL) 500 Mg Tablet, 500 MG PO DAILY for ANTI-DIABETIC, TAB 0 Refills 07/26/20 Melatonin (MELATONIN) 1 Mg Tablet, 1 TAB PO QHS for sleep for 30 Days, #30 TAB 0 Refills 07/26/20 Losartan Potassium (LOSARTAN POTASSIUM) 100 Mg Tablet, 100 MG PO DAILY for HYPERTENSION, TAB 07/26/20 Levothyroxine Sodium (LEVOTHYROXINE SODIUM) 125 Mcg Tablet, 1 TAB PO DAILY for hypothyroidism, #30 TAB 5 Refills 07/26/20 Gabapentin (GABAPENTIN) 600 Mg Tablet, 600 MG PO TID for NEUROGENIC PAIN, TAB 07/26/20 Fluoxetine Hcl (FLUOXETINE HCL) 40 Mg Capsule, 40 MG PO DAILY for depression, CAP 07/26/20 Multivitamin With Minerals (DAILY VITAMIN FORMULA-MINERALS) 1 Each Tablet, 1 TAB PO DAILY for supplement for 30 Days, #30 TAB 0 Refills 07/26/20 Clonazepam (CLONAZEPAM ) 0.5 Mg Tablet, 0.5 MG PO HS for FOR ANXIETY, TAB 07/26/20 Carbamazepine (CARBAMAZEPINE) 100 Mg Cpmp.12hr, 2 CAP PO BID for nerve pain for 30 Days, #120 CAP 0 Refills 07/26/20 Calcium Carbonate (CALCIUM CARBONATE) 500 Mg Tablet, 1 TAB PO BID PRN for SEE ADMIN INSTRUCTIONS for 30 Days, #60 TAB 0 Refills 07/26/20 Atorvastatin Calcium (ATORVASTATIN CALCIUM) 40 Mg Tablet, 1 TAB PO DAILY for cholesterol, #30 TAB 5 Refills 07/26/20 Amlodipine Besylate (AMLODIPINE BESYLATE) 10 Mg Tablet, 10 MG PO DAILY for bp, TAB 07/26/20 Lactobacillus Acidophilus (ACIDOPHILUS) 1 Each Tablet, 1 TAB PO TID for stomach for 30 Days, #90 TAB 0 Refills 07/26/20 JUAN ANTONIO CASSIDY MD Sep 06, 2020 10:04
[2020-09-06] MEDS ORDERED: LEVO750T5 PO (10:10)
--- NOTE | 2020-09-06 10:27 | PDOC3 ---
Discharge Summary Visit Information Date of Admission: Sep 05, 2020 Date of Discharge: Sep 06, 2020 Final Diagnosis Problems Medical Problems: (1) Altered mental status Status: Acute (2) Closed dens fracture Status: Acute (3) Fall Status: Acute Brief Hospital Course Allergies Allergies Coded Allergies Type Severity Reaction Last Updated Verified No Known Drug Allergies 07/26/20 No Vital Signs Vital Signs Date Time Temp Pulse Resp B/P (MAP) Pulse Ox O2 Delivery O2 Flow Rate FiO2 09/06/20 07:00 98.1 62 18 172/78 (109) 92 Room Air 98.1 09/06/20 03:00 2.0 Lab Results Laboratory Tests Test 09/05/20 10:23 09/05/20 13:46 09/05/20 14:02 09/06/20 07:30 White Blood Count 13.4 x10^3/uL (4.0-11.0) 9.5 x10^3/uL (4.0-11.0) Red Blood Count 3.63 x10^6/uL (3.50-5.40) 3.49 x10^6/uL (3.50-5.40) Hemoglobin 11.3 g/dL (12.0-15.5) 11.0 g/dL (12.0-15.5) Hematocrit 35.0 % (36.0-47.0) 34.0 % (36.0-47.0) Mean Corpuscular Volume 96 fL (79-100) 97 fL (79-100) Mean Corpuscular Hemoglobin 31 pg (25-35) 32 pg (25-35) Mean Corpuscular Hemoglobin Concent 32 g/dL (31-37) 32 g/dL (31-37) Red Cell Distribution Width 14.7 % (11.5-14.5) 14.7 % (11.5-14.5) Platelet Count 502 x10^3/uL (140-400) 428 x10^3/uL (140-400) Neutrophils (%) (Auto) 88 % (31-73) 84 % (31-73) Lymphocytes (%) (Auto) 6 % (24-48) 9 % (24-48) Monocytes (%) (Auto) 5 % (0-9) 4 % (0-9) Eosinophils (%) (Auto) 0 % (0-3) 2 % (0-3) Basophils (%) (Auto) 0 % (0-3) 0 % (0-3) Neutrophils # (Auto) 11.8 x10^3/uL (1.8-7.7) 8.0 x10^3/uL (1.8-7.7) Lymphocytes # (Auto) 0.8 x10^3/uL (1.0-4.8) 0.9 x10^3/uL (1.0-4.8) Monocytes # (Auto) 0.7 x10^3/uL (0.0-1.1) 0.4 x10^3/uL (0.0-1.1) Eosinophils # (Auto) 0.1 x10^3/uL (0.0-0.7) 0.2 x10^3/uL (0.0-0.7) Basophils # (Auto) 0.0 x10^3/uL (0.0-0.2) 0.0 x10^3/uL (0.0-0.2) Segmented Neutrophils % 69 % (35-66) Band Neutrophils % 12 % (0-9) Lymphocytes % 15 % (24-48) Monocytes % 4 % (0-10) Platelet Estimate Increased (ADEQUATE) Sodium Level 138 mmol/L (136-145) 138 mmol/L (136-145) Potassium Level 4.0 mmol/L (3.5-5.1) 3.7 mmol/L (3.5-5.1) Chloride Level 100 mmol/L (98-107) 100 mmol/L (98-107) Carbon Dioxide Level 26 mmol/L (21-32) 23 mmol/L (21-32) Anion Gap 12 (6-14) 15 (6-14) Blood Urea Nitrogen 37 mg/dL (7-20) 28 mg/dL (7-20) Creatinine 1.5 mg/dL (0.6-1.0) 0.8 mg/dL (0.6-1.0) Estimated GFR (Cockcroft-Gault) 34.0 70.3 BUN/Creatinine Ratio 25 (6-20) 35 (6-20) Glucose Level 167 mg/dL (70-99) 232 mg/dL (70-99) Calcium Level 9.4 mg/dL (8.5-10.1) 8.8 mg/dL (8.5-10.1) Magnesium Level 2.2 mg/dL (1.8-2.4) Total Bilirubin 0.2 mg/dL (0.2-1.0) 0.3 mg/dL (0.2-1.0) Aspartate Amino Transf (AST/SGOT) 17 U/L (15-37) 22 U/L (15-37) Alanine Aminotransferase (ALT/SGPT) 25 U/L (14-59) 25 U/L (14-59) Alkaline Phosphatase 142 U/L (46-116) 132 U/L (46-116) Creatine Kinase 34 U/L (26-192) Troponin I Quantitative < 0.017 ng/mL (0.000-0.055) < 0.017 ng/mL (0.000-0.055) MT-Qso-P-Type Natriuretic Peptide 117 pg/mL (0-124) Total Protein 7.3 g/dL (6.4-8.2) 7.1 g/dL (6.4-8.2) Albumin 3.0 g/dL (3.4-5.0) 2.7 g/dL (3.4-5.0) Albumin/Globulin Ratio 0.7 (1.0-1.7) 0.6 (1.0-1.7) Lipase 82 U/L (73-393) Urine Collection Type U cath Urine Color Yellow Urine Clarity Clear Urine pH 5.0 (<5.0-8.0) Urine Specific [place] >=1.030 (1.000-1.030) Urine Protein Negative mg/dL (NEG-TRACE) Urine Glucose (UA) >=1000 mg/dL (NEG) Urine Ketones (Stick) 15 mg/dL (NEG) Urine Blood Moderate (NEG) Urine Nitrite Negative (NEG) Urine Bilirubin Small (NEG) Urine Urobilinogen Dipstick 0.2 mg/dL (0.2 mg/dL) Urine Leukocyte Esterase Negative (NEG) Urine RBC 11-20 /HPF (0-2) Urine WBC 1-4 /HPF (0-4) Urine Squamous Epithelial Cells Few /LPF Urine Bacteria Few /HPF (0-FEW) Urine Opiates Screen Neg (NEG) Urine Methadone Screen Neg (NEG) Urine Barbiturates Neg (NEG) Urine Phencyclidine Screen Neg (NEG) Urine Amphetamine/Methamphetamine Neg (NEG) Urine Benzodiazepines Screen Neg (NEG) Urine Cocaine Screen Neg (NEG) Urine Cannabinoids Screen Neg (NEG) Urine Ethyl Alcohol Neg (NEG) Laboratory Tests Test 09/05/20 10:23 09/05/20 13:46 09/05/20 14:02 09/06/20 07:30 White Blood Count 13.4 x10^3/uL (4.0-11.0) 9.5 x10^3/uL (4.0-11.0) Red Blood Count 3.63 x10^6/uL (3.50-5.40) 3.49 x10^6/uL (3.50-5.40) Hemoglobin 11.3 g/dL (12.0-15.5) 11.0 g/dL (12.0-15.5) Hematocrit 35.0 % (36.0-47.0) 34.0 % (36.0-47.0) Mean Corpuscular Volume 96 fL (79-100) 97 fL (79-100) Mean Corpuscular Hemoglobin 31 pg (25-35) 32 pg (25-35) Mean Corpuscular Hemoglobin Concent 32 g/dL (31-37) 32 g/dL (31-37) Red Cell Distribution Width 14.7 % (11.5-14.5) 14.7 % (11.5-14.5) Platelet Count 502 x10^3/uL (140-400) 428 x10^3/uL (140-400) Neutrophils (%) (Auto) 88 % (31-73) 84 % (31-73) Lymphocytes (%) (Auto) 6 % (24-48) 9 % (24-48) Monocytes (%) (Auto) 5 % (0-9) 4 % (0-9) Eosinophils (%) (Auto) 0 % (0-3) 2 % (0-3) Basophils (%) (Auto) 0 % (0-3) 0 % (0-3) Neutrophils # (Auto) 11.8 x10^3/uL (1.8-7.7) 8.0 x10^3/uL (1.8-7.7) Lymphocytes # (Auto) 0.8 x10^3/uL (1.0-4.8) 0.9 x10^3/uL (1.0-4.8) Monocytes # (Auto) 0.7 x10^3/uL (0.0-1.1) 0.4 x10^3/uL (0.0-1.1) Eosinophils # (Auto) 0.1 x10^3/uL (0.0-0.7) 0.2 x10^3/uL (0.0-0.7) Basophils # (Auto) 0.0 x10^3/uL (0.0-0.2) 0.0 x10^3/uL (0.0-0.2) Segmented Neutrophils % 69 % (35-66) Band Neutrophils % 12 % (0-9) Lymphocytes % 15 % (24-48) Monocytes % 4 % (0-10) Platelet Estimate Increased (ADEQUATE) Sodium Level 138 mmol/L (136-145) 138 mmol/L (136-145) Potassium Level 4.0 mmol/L (3.5-5.1) 3.7 mmol/L (3.5-5.1) Chloride Level 100 mmol/L (98-107) 100 mmol/L (98-107) Carbon Dioxide Level 26 mmol/L (21-32) 23 mmol/L (21-32) Anion Gap 12 (6-14) 15 (6-14) Blood Urea Nitrogen 37 mg/dL (7-20) 28 mg/dL (7-20) Creatinine 1.5 mg/dL (0.6-1.0) 0.8 mg/dL (0.6-1.0) Estimated GFR (Cockcroft-Gault) 34.0 70.3 BUN/Creatinine Ratio 25 (6-20) 35 (6-20) Glucose Level 167 mg/dL (70-99) 232 mg/dL (70-99) Calcium Level 9.4 mg/dL (8.5-10.1) 8.8 mg/dL (8.5-10.1) Magnesium Level 2.2 mg/dL (1.8-2.4) Total Bilirubin 0.2 mg/dL (0.2-1.0) 0.3 mg/dL (0.2-1.0) Aspartate Amino Transf (AST/SGOT) 17 U/L (15-37) 22 U/L (15-37) Alanine Aminotransferase (ALT/SGPT) 25 U/L (14-59) 25 U/L (14-59) Alkaline Phosphatase 142 U/L (46-116) 132 U/L (46-116) Creatine Kinase 34 U/L (26-192) Troponin I Quantitative < 0.017 ng/mL (0.000-0.055) < 0.017 ng/mL (0.000-0.055) WW-Nyz-K-Type Natriuretic Peptide 117 pg/mL (0-124) Total Protein 7.3 g/dL (6.4-8.2) 7.1 g/dL (6.4-8.2) Albumin 3.0 g/dL (3.4-5.0) 2.7 g/dL (3.4-5.0) Albumin/Globulin Ratio 0.7 (1.0-1.7) 0.6 (1.0-1.7) Lipase 82 U/L (73-393) Urine Collection Type U cath Urine Color Yellow Urine Clarity Clear Urine pH 5.0 (<5.0-8.0) Urine Specific [place] >=1.030 (1.000-1.030) Urine Protein Negative mg/dL (NEG-TRACE) Urine Glucose (UA) >=1000 mg/dL (NEG) Urine Ketones (Stick) 15 mg/dL (NEG) Urine Blood Moderate (NEG) Urine Nitrite Negative (NEG) Urine Bilirubin Small (NEG) Urine Urobilinogen Dipstick 0.2 mg/dL (0.2 mg/dL) Urine Leukocyte Esterase Negative (NEG) Urine RBC 11-20 /HPF (0-2) Urine WBC 1-4 /HPF (0-4) Urine Squamous Epithelial Cells Few /LPF Urine Bacteria Few /HPF (0-FEW) Urine Opiates Screen Neg (NEG) Urine Methadone Screen Neg (NEG) Urine Barbiturates Neg (NEG) Urine Phencyclidine Screen Neg (NEG) Urine Amphetamine/Methamphetamine Neg (NEG) Urine Benzodiazepines Screen Neg (NEG) Urine Cocaine Screen Neg (NEG) Urine Cannabinoids Screen Neg (NEG) Urine Ethyl Alcohol Neg (NEG) Brief Hospital Course Ms. Thompson is a 75 old female who presented with altered mental status, fall at her intermediate, and hospital-acquired pneumonia. She has previous history of subdural hematoma and base of dens fracture. CT head and cervical spine on admission separation of the principal fragments of base of dens fracture marginally increased compared to 07/26/2020 although remains less than 2 mm. Neurosurgery was made aware of patient by ER, and will follow-up with her as an outpatient. CT cervical spine was also able to capture right upper lung parenchymal opacities, likely pneumonia. She was treated with IV fluids and IV antibiotics with improvement in her mental status. Patient was stable for discharge to complete her antibiotic regimen as outpatient. Discharge Information Condition at Discharge: Improved Follow Up: Weeks Disposition/Orders: D/C to Another Facility Scheduled Amlodipine Besylate (Amlodipine Besylate) 10 Mg Tablet, 10 MG PO DAILY for bp, (Reported) Entered as Reported by: ASHLI FRANZ on 07/26/20751 Last Action: Continued on 09/06/20937 by VINCE KIM Atorvastatin Calcium (Atorvastatin Calcium) 40 Mg Tablet, 1 TAB PO DAILY for cholesterol, #30 Ref 5 (Reported) Entered as Reported by: ASHLI FRANZ on 07/26/20751 Last Action: Continued on 09/06/20937 by VINCE KIM Carbamazepine (Carbamazepine) 100 Mg Cpmp.12hr, 2 CAP PO BID for nerve pain for 30 Days, #120 Ref 0 (Reported) Entered as Reported by: ASHLI FRANZ on 07/26/20751 Last Action: Converted on 09/06/20945 by VINCE KIM Clonazepam (Clonazepam ) 0.5 Mg Tablet, 0.5 MG PO HS for FOR ANXIETY, (Reported) Entered as Reported by: ASHLI FRANZ on 07/26/20751 Last Action: Continued on 09/06/20937 by VINCE KIM Fluoxetine Hcl (Fluoxetine Hcl) 40 Mg Capsule, 40 MG PO DAILY for depression, (Reported) Entered as Reported by: ASHLI FRANZ on 07/26/20751 Last Action: Converted on 09/06/20945 by VINCE KIM Gabapentin (Gabapentin) 600 Mg Tablet, 600 MG PO TID for NEUROGENIC PAIN, (Reported) Entered as Reported by: ASHLI FRANZ on 07/26/20751 Last Action: Converted on 09/06/20945 by VINCE KIM Ibuprofen (Ibuprofen) 600 Mg Tablet, 600 MG PO TID for inflammation, (Reported) Entered as Reported by: MANISH PINK on 09/05/202020 Last Action: Converted on 09/06/20945 by VINCE KIM Insulin Detemir (Levemir Flextouch) 100 Unit/1 Ml Insuln.pen, 21 UNIT SQ HS for dm, (Reported) Entered as Reported by: ASHLI FRANZ on 07/26/20751 Last Action: Reviewed on 09/06/20930 by VINCE KIM Insulin Lispro (Humalog) 100 Unit/1 Ml Vial, 16 UNIT SQ BIDACBL for dm, (Reported) Entered as Reported by: ASHLI FRANZ on 07/26/20751 Last Action: Reviewed on 09/06/20930 by VINCE KIM Insulin Lispro (Humalog) 100 Unit/1 Ml Vial, 8 UNIT SQ DAILYWSUP for diabetes, (Reported) Entered as Reported by: MANISH PINK on 09/05/202012 Last Action: Reviewed on 09/06/20930 by VINCE KIM Lactobacillus Acidophilus (Acidophilus) 1 Each Tablet, 1 TAB PO TID for stomach for 30 Days, #90 Ref 0 (Reported) Entered as Reported by: ASHLI FRANZ on 07/26/20751 Last Action: Converted on 09/06/20945 by VINCE KIM Levofloxacin (Levofloxacin) 750 Mg Tablet, 1 TAB PO DAILY for PNA, #5 Ref 0 Prescribed by: JUAN ANTONIO CASSIDY MD on 09/06/20 1010 Levothyroxine Sodium (Levothyroxine Sodium) 125 Mcg Tablet, 1 TAB PO DAILY for hypothyroidism, #30 Ref 5 (Reported) Entered as Reported by: ASHLI FRANZ on 07/26/20751 Last Action: Continued on 09/06/20945 by VINCE KIM Lidocaine HCl (Aspercreme) 76.5 Gm Cream..g., 1 MARY CARMEN TP TID for itching for 30 Days, Ref 0 (Reported) Entered as Reported by: ASHLI FRANZ on 07/26/20751 Last Action: Converted on 09/06/20945 by VINCE KIM Losartan Potassium (Losartan Potassium) 100 Mg Tablet, 100 MG PO DAILY for HYPERTENSION, (Reported) Entered as Reported by: ASHLI FRANZ on 07/26/20751 Last Action: Converted on 09/06/20945 by VINCE KIM Melatonin (Melatonin) 1 Mg Tablet, 1 TAB PO QHS for sleep for 30 Days, #30 Ref 0 (Reported) Entered as Reported by: ASHLI FRANZ on 07/26/20751 Last Action: Converted on 09/06/20945 by VINCE KIM Metformin Hcl (Metformin Hcl) 500 Mg Tablet, 500 MG PO DAILY for ANTI-DIABETIC, Ref 0 (Reported) Entered as Reported by: ASHLI FRANZ on 07/26/20751 Last Action: Continued on 09/06/20937 by VINCE KIM Mirabegron (Myrbetriq) 25 Mg Tab.er.24h, 25 MG PO DAILY for oab, (Reported) Entered as Reported by: ASHLI FRANZ on 07/26/20751 Last Action: Reviewed on 09/06/20930 by VINCE KIM Multivitamin With Minerals (Daily Vitamin Formula-Minerals) 1 Each Tablet, 1 TAB PO DAILY for supplement for 30 Days, #30 Ref 0 (Reported) Entered as Reported by: ASHLI FRANZ on 07/26/20751 Last Action: Converted on 09/06/20945 by VINCE KIM Nystatin (Nystatin) 1 Each Powder.ea., 1 EACH MC BID for yeast, (Reported) Entered as Reported by: MANISH PINK on 09/05/202020 Last Action: Reviewed on 09/06/20930 by VINCE KIM Omeprazole (Omeprazole) 20 Mg Tablet.dr, 1 TAB PO DAILY for reflux, #90 Ref 1 ( Reported) Entered as Reported by: ASHLI FRANZ on 07/26/20751 Last Action: Converted on 09/06/20945 by VINCE KIM Scheduled PRN Acetaminophen (Acetaminophen) 325 Mg Tablet, 2 TAB PO PRN Q4HRS PRN for pain or fever for 30 Days, #30 Ref 0 (Reported) Entered as Reported by: ASHLI FRANZ on 07/26/20751 Last Action: Continued on 09/06/20937 by VINCE KIM Calcium Carbonate (Calcium Carbonate) 500 Mg Tablet, 1 TAB PO BID PRN for SEE ADMIN INSTRUCTIONS for 30 Days, #60 Ref 0 (Reported) Entered as Reported by: ASHLI FRANZ on 07/26/20751 Last Action: Reviewed on 09/06/20930 by VINCE KIM Cyclobenzaprine Hcl (Cyclobenzaprine Hcl) 10 Mg Tablet, 5 MG PO PRN Q8HRS PRN for MUSCLE SPASMS for 30 Days, #60 Prescribed by: GINNY RING MD on 08/02/20 1147 Last Action: Continued on 09/06/20937 by VINCE KIM Loperamide Hcl (Loperamide) 2 Mg Tablet, 2 MG PO PRN PRN for DIARRHEA, (Reported) After each loose stool not to exceed 8c/d Entered as Reported by: ASHLI FRANZ on 07/26/20751 Last Action: Converted on 09/06/20945 by VINCE KIM Ondansetron Hcl (Ondansetron Hcl) 4 Mg Tablet, 1 TAB PO PRN Q8HRS PRN for VOMITING, #10 Ref 1 (Reported) Entered as Reported by: ASHLI FRANZ on 07/26/20751 Last Action: Converted on 09/06/20945 by VINCE KIM Polyethylene Glycol 3350 (Miralax) 17 Gm Powd.pack, 1 PACKET PO PRN BID PRN for CONSTIPATION for 2 Days, Ref 0 (Reported) dissolve in water Entered as Reported by: MANISH PINK on 09/05/202020 Last Action: Reviewed on 09/06/20930 by VINCE KIM Justicifation of Admission Dx: Justifications for Admission: Justification of Admission Dx: Yes Altered Mental Status: Altered Mental Status JUAN ANTONIO CASSIDY MD Sep 06, 2020 10:27
[2020-09-06] MEDS: CEFEPIME HCL IV Push 2 GM VIAL. IVP SCH (10:36)
--- NOTE | 2020-09-06 10:59 | NUR ---
SS following for discharge planning. SS reviewed pt chart and discussed with pt RN. Pt is a fdc and rehabilitation resident from [facility], ; fax [phone]. Pt is currently on room air and requesting to return to [facility]. Discharge order on the chart for return to facility. SS spoke with Vanita at [facility] and was notified that no COVID19 test or PT/OT evaluations are needed for return. SS phoned and faxed discharge orders and clinical to [facility]. Pt will discharge today and return to [facility] between 1230 and 1300. Pt and pt's RN notified. Packet on chart.
[2020-09-06 11:00] VITALS: BP 150/68
[2020-09-06] MEDS ORDERED: PANTOPRAZOLE 40 MG TABLET.DR. PO SCH (11:00)
[2020-09-06] MEDS: FLUoxetine HCL 20 MG CAPSULE PO SCH ×2 (11:00→12:06)
[2020-09-06] MEDS ORDERED: LOSARTAN POTASSIUM 50 MG TABLET. PO SCH (11:00)
[2020-09-06] MEDS ORDERED: LEVOTHYROXINE 125 MCG TABLET PO SCH (11:00)
--- NOTE | 2020-09-06 12:30 | NUR ---
Report given to Juliana at [facility]/ Med at 1235
[2020-09-06] MEDS ORDERED: GABAPENTIN 300 MG CAPSULE. PO SCH (14:00)
[2020-09-06] MEDS ORDERED: LIDOCAINE 2% TOPICAL JELLY 30GM TUBE. TP SCH (14:00)
[2020-09-06] MEDS ORDERED: LACTOBACILLUS RHAMNOSUS GG 1 CAPSULE. PO SCH (14:00)
--- NOTE | 2020-09-06 15:25 | RAD ---
XR CHEST 1V 09/05/2020 12:47 PM INDICATION: Fall 2 days ago COMPARISON: None available TECHNIQUE: Portable frontal view of the chest is provided. FINDINGS: The cardiomediastinal silhouette is within normal limits. Lungs are clear. There are no significant pleural effusions. There is no pulmonary vascular congestion. No pneumothora x. No suspicious osseous abnormality. IMPRESSION: There is no acute cardiopulmonary process. Electronically signed by: Lilly Huerta MD (09/06/2020 3:22 PM) [id number]
[2020-09-06] MEDS ORDERED: clonazePAM 0.5 MG TABLET PO SCH (21:00)
[2020-09-06] MEDS ORDERED: NON FORMULARY ITEM (Melatonin 1 TAB) PO SCH (21:00)
--- NOTE | 2020-09-07 02:28 | EKG ---
[facility] [address] [place] [address] Test Date: 2020-09-05 Test Time: 10:18:36 Pat Name: DEEP MOSES Department: Room: 406 Gender: F Eye[place] Row Marker: : 1945 Requested By: CARL JANE Order Number: [id number] Reading MD: Measurements Intervals [place] Rate: 90 P: -4 AK: 208 QRS: -36 QRSD: 92 T: 65 QT: 360 QTc: 444 Interpretive Statements SINUS RHYTHM ABNORMAL LEFT AXIS DEVIATION R-S TRANSITION ZONE IN V LEADS DISPLACED TO THE LEFT LEFT ANTERIOR FASCICULAR BLOCK ABNORMAL ECG RI6.02 No previous ECG available for comparison
[2020-09-07] MEDS ORDERED: MULTIVITAMIN with MINERAL TABLET. PO SCH (09:00)
== END 2020-09-06 12:30 | DRG 682 ==
LOC: ER 10:07 → ED HOLD 13:17 → 4 NORTH 18:13
PROVIDERS: ADMIT Family Medicine; ATTEND Family Medicine
DX: N17.0 Acute kidney failure with tubular necrosis (principal); J18.9 Pneumonia, unspecified organism; S12.110A Anterior displaced Type II dens fracture, initial encounter for closed fracture; E46 Unspecified protein-calorie malnutrition; F03.90 Unspecified dementia, unspecified severity, without behavioral disturbance, psychotic disturbance, mood disturbance, and anxiety; I10 Essential (primary) hypertension; F41.9 Anxiety disorder, unspecified; E78.00 Pure hypercholesterolemia, unspecified; Y95 Nosocomial condition; Z96.659 Presence of unspecified artificial knee joint; E03.9 Hypothyroidism, unspecified; W18.39XA Other fall on same level, initial encounter; F32.9 Major depressive disorder, single episode, unspecified; K58.9 Irritable bowel syndrome, unspecified; Z66 Do not resuscitate; Z68.31 Body mass index [BMI] 31.0-31.9, adult; Z90.49 Acquired absence of other specified parts of digestive tract; Z90.710 Acquired absence of both cervix and uterus; Z82.0 Family history of epilepsy and other diseases of the nervous system; Y93.89 Activity, other specified; Y99.8 Other external cause status; Y92.129 Unspecified place in nursing home as the place of occurrence of the external cause
CPT/HCPCS: 36415; 70450; 71045; 72125; 80053; 80307; 81001; 82550; 83690; 83735; 83880; 84145; 84484; 85007; 85025; 93005; J0692; J2405; J7030; G0378

== ENCOUNTER → 2020-09-29 | Outpatient (CLI) | payer MEDICARE, MEDICAID ==
[2020-09-17 15:00] VITALS: BP 159/75
[~2020-09-29] MED LIST changes: +ACET325T9 PO; +BISA10SU55 RC; +CARB200T13 PO; +CLONAZEPAM1 MG PO; +FLUT16SP NS; +IBUP-1007 PO; +LEVO750T5 PO; +MENT118G TP; +METO5TAB PO; +NYST15PO9 TP; +NYST1POW5 MC; +POLY17PO29 PO; +SENN8.6T11 PO; +SODI44SP NS; +TRAM50TA PO
--- NOTE | 2020-09-30 05:13 | KCIC ---
Study: CT cervical spine without contrast INDICATION: C2 fracture follow-up. COMPARISON: CT cervical spine 09/05/2020 TECHNIQUE: Axial CT imaging of the cervical spine performed without intravenous contrast. Sagittal an d coronal reformats were obtained. One or more of the following individualized dose reduction techniques were utilized for this examinat ion: 1. Automated exposure control 2. Adjustment of the mA and/or kV according to patient size 3. Use of iterative reconstruction technique. FINDINGS: No interval change in alignment of a type II odontoid process fracture with only mild dorsal angulati on. The width of the fracture cleft is no different at around 2 mm. No bridging bone has developed. No newly seen fracture or change in alignment. Redemonstrated broad cervical dextrocurvature. Unchang ed extent of multilevel/multifactorial spondylosis and associated central canal and neural foraminal narrowing. Unremarkable/unchanged neck soft tissues. IMPRESSION: No interval change in alignment of a type II odontoid process fracture which again exhibits mild dors al angulation and approximately 2 mm of diastases. No bridging callus across the fracture defect. No newly seen fracture or change in alignment elsewhere. Electronically signed by: ES GODOY MD (09/30/2020 5:11 AM) [facility]
== END ==
LOC: KCIC CT 12:49
PROVIDERS: ATTEND Neurological Surgery
DX: S12.100A Unspecified displaced fracture of second cervical vertebra, initial encounter for closed fracture (principal); X58.XXXA Exposure to other specified factors, initial encounter; Y93.89 Activity, other specified; Y92.89 Other specified places as the place of occurrence of the external cause; Y99.8 Other external cause status
CPT/HCPCS: 72125